=== PATIENT | female | born 1990 | race Caucasian/White ===

== ENCOUNTER 2024-10-16 15:31 | Emergency (ER) | payer OTHER ==
[~2024-10-16] VITALS: Ht 167.6 cm; Wt 68.0 kg
[2024-10-16 16:53] LABS: BILIRUBIN Negative (Negative); BLOOD Negative (Negative); CLARITY Cloudy (Clear); COLOR Yellow (Yellow); GLUCOSE Negative (Negative); KETONE Negative (Negative); LEUKO ESTERASE Trace (Negative); NITRITE Negative (Negative); SPECIFIC GRAVITY 1.015 (1.001-1.030); UROBILINOGEN 0.2 E.U./dl (0.0-1.0)
[2024-10-16 17:25] LABS: BACTERIA 2+; EPITHELIAL CELLS 31-40
== END 2024-10-16 17:40 | disposition home or self-care (01) ==
LOC: ED 15:31
PROVIDERS: Emergency Medicine
DX: O26.891 Other specified pregnancy related conditions, first trimester (principal); R10.2 Pelvic and perineal pain; Z3A.01 Less than 8 weeks gestation of pregnancy

== ENCOUNTER 2025-01-19 18:54 | Emergency (ER) | payer MEDICAID ==
[~2025-01-19] VITALS: Ht 167.6 cm; Wt 69.9 kg
[2025-01-19] MEDS ORDERED: BRIXADI8 MG/0.16 SQ (19:05)
[2025-01-19 19:30] LABS: URINE AMPHETAMINES Negative (1000ng/ml); URINE BARBITURATES Negative (200ng/ml); URINE BENZODIAZEPINES Negative (200ng/ml); URINE CANNABINOIDS (THC) Negative (50ng/ml); URINE COCAINE Negative (300ng/ml); URINE METHADONE Negative (300ng/ml); URINE OPIATES Negative (300ng/ml); URINE PHENCYCLIDINE Negative (25ng/ml)
== END 2025-01-19 20:51 | disposition home or self-care (01) ==
LOC: ED 18:54
PROVIDERS: Emergency Medicine
DX: Z13.89 Encounter for screening for other disorder (principal)